=== PATIENT | female | born 1990 | race Caucasian/White ===

== ENCOUNTER → 2016-10-17 | Outpatient (CLI) | payer OTHER ==
--- NOTE | 2016-10-17 14:56 | XR ---
EXAMINATION TYPE: XR lumbar spine 2 or 3V DATE OF EXAM: 10/17/2016 2:49 PM CLINICAL HISTORY: Low back pain after lifting injury. TECHNIQUE: Frontal and lateral images of the lumbar spine are obtained. COMPARISON: None FINDINGS: There are 5 lumbar type vertebral bodies identified. The lumbar spine shows satisfactory alignment without evidence of acute fracture or dislocation. Vertebral body heights and disk space he ights are within normal limits. Cholecystectomy clips are seen in overlying soft tissue. IMPRESSION: No acute fracture or dislocation is seen in the lumbar spine.
== END | disposition home or self-care (01) ==
LOC: RADXRMAIN 14:33
PROVIDERS: ATTEND Emergency Medicine
DX: S33.5XXA Sprain of ligaments of lumbar spine, initial encounter (principal)
CPT/HCPCS: 72100

== ENCOUNTER 2018-03-21 00:04 | Emergency (ER) | payer OTHER ==
[2018-03-21] MEDS ORDERED: KETOROLAC 30 MG/ML 1 ML VIAL IVP STA (00:34)
--- NOTE | 2018-03-21 00:48 | ED ---
Chest Pain HPI - General Chief Complaint: Chest Pain Stated Complaint: Chest and back pain Time Seen by Provider: 03/21/18 00:26 Source: patient Mode of arrival: ambulatory Limitations: no limitations - History of Present Illness Initial Comments: 27-year-old female patient presents to the emergency department today for evaluation of chest and upper back pain. Patient states that the pain in her chest is a sharp stabbing pain, states that it radiates across her entire chest. States that it also radiates across her entire upper back. States that his been going on for the last 2 days. States that she did just start a new job however she states she just sits in a chair and feels relaxed there. She states that the pain does increase with movement of her upper extremities and deep breathing. She denies any shortness of breath with this. Denies any cough or congestion. Denies any fevers or chills. She states that she did have the next one on control implant removed from her arm approximately one month ago. She denies any recent travel. Denies any calf or leg pain. States she has taken ibuprofen for pain control however it is not helping. Patient denies any recent rash, sweats, abdominal pain, nausea, vomiting, diarrhea, constipation, back pain, numbness, tingling, dizziness, weakness, hematuria, dysuria, urinary urgency, urinary frequency, headache, visual changes , or any other complaints. - Related Data Previous Rx's Medication Instructions Recorded Cyclobenzaprine [Flexeril] 10 mg PO TID PRN #15 tablet 12/25/15 Naproxen [Naprosyn] 500 mg PO Q12HR PRN #20 tab 12/25/15 traMADol HCl [Ultram] 50 mg PO Q4H PRN #15 tab 12/25/15 Ibuprofen [Motrin] 600 mg PO Q8HR PRN #30 tab 03/21/18 Allergies Allergy/AdvReac Type Severity Reaction Status Date / Time lactose AdvReac Diarrhea Verified 03/21/18 00:09 Review of Systems ROS Statement: Those systems with pertinent positive or pertinent negative responses have been documented in the HPI. ROS Other: All systems not noted in ROS Statement are negative. EKG Findings - EKG Comments: EKG Findings:: EKG obtained at 00 44 shows normal sinus rhythm with a ventricular rate is 77, MN interval 142, QR orthodox 78, QT 370, QTC 418. No evidence of ST elevation or depression. Past Medical History Past Medical History: No Reported History History of Any Multi-Drug Resistant Organisms: None Reported Past Surgical History: Cholecystectomy Past Psychological History: No Psychological Hx Reported Smoking Status: Current every day smoker Past Alcohol Use History: Occasional Past Drug Use History: None Reported General Exam Limitations: no limitations General appearance: alert, in no apparent distress, other (This is a well- developed, well-nourished adult female patient in no acute distress. Vital signs upon presentation are temperature 97.8F, pulse 99, respirations 16, blood pressure 160/100, pulse ox 100% on room air.) Eye exam: Present: normal appearance, PERRL, EOMI. Absent: scleral icterus, conjunctival injection, periorbital swelling ENT exam: Present: normal exam, normal oropharynx, mucous membranes moist Respiratory exam: Present: normal lung sounds bilaterally, chest wall tenderness (Pain is reproducible upon palpation). Absent: respiratory distress , wheezes, rales, rhonchi, stridor Cardiovascular Exam: Present: regular rate, normal rhythm, normal heart sounds. Absent: systolic murmur, diastolic murmur, rubs, gallop, clicks GI/Abdominal exam: Present: soft, normal bowel sounds. Absent: distended, tenderness, guarding, rebound, rigid Back exam: Present: normal inspection, other (Upper back tenderness, no spinal tenderness) Neurological exam: Present: alert, oriented X3, CN II-XII intact Psychiatric exam: Present: normal affect, normal mood Skin exam: Present: warm, dry, intact, normal color. Absent: rash Course Vital Signs 03/21/18 03/21/18 03/21/18 00:08 01:55 02:12 Temperature 97.8 F 97.9 F Pulse Rate 99 73 Respiratory 16 17 Rate Blood Pressure 160/100 135/76 O2 Sat by Pulse 100 99 Oximetry Chest Pain MDM - MDM 27 year-old female patient presented to the emergency department today for evaluation of generalized chest pain and upper back pain. Physical examination does reveal clear equal lung sounds. Normal heart sounds. The pain is reproducible upon palpation of the anterior chest and posterior chest mata. Patient did initially present with elevated blood pressure but this did normalize once her anxiety decreased. Chest x-ray showed no acute cardiopulmonary process. EKG showed normal sinus rhythm. I did discuss findings with the patient, did discuss that her symptoms could be related to costochondritis related to starting a new job. She is instructed take anti- inflammatory pain medication apply warm moist heat to the painful areas. She is instructed to follow-up with the primary care physician for recheck in 1-2 days. Return parameters discussed in detail. She verbalizes understanding and agrees with this plan. Radiology:Two-view x-ray of the chest is obtained. Heart and mediastinum are normal. Lungs are clear. Diaphragm is normal. Bony thorax is normal. Impression by Dr. Collins shows normal chest. Disposition Clinical Impression: Costochondritis Disposition: HOME SELF-CARE Condition: Good Instructions: Chest Pain (ED), Costochondritis (ED) Additional Instructions: Apply warm moist heat to the upper back and chest. Take anti-inflammatory pain medication every 6-8 hours as needed. Rest. Follow-up with your primary care physician for recheck in 1-2 days. Prescriptions: Ibuprofen [Motrin] 600 mg PO Q8HR PRN #30 tab PRN Reason: Pain Is patient prescribed a controlled substance at d/c from ED?: No Referrals: Pavan Gayle MD [Primary Care Provider] - 1-2 days Time of Disposition: 02:06
--- NOTE | 2018-03-21 01:39 | XR ---
EXAMINATION TYPE: XR chest 2V DATE OF EXAM: 03/21/2018 COMPARISON: NONE HISTORY: Chest pain TECHNIQUE: Frontal and lateral views of the chest are obtained. FINDINGS: Heart and mediastinum are normal. Lungs are clear. Diaphragm is normal. Bony thorax is nor mal. IMPRESSION: Normal chest
[2018-03-21 01:59] VITALS: BP 135/76; PULSE 73; RESP 17
[2018-03-21 02:13] VITALS: TEMP 97.9
== END 2018-03-21 02:12 | disposition home or self-care (01) ==
LOC: EC 00:04
DX: M94.0 Chondrocostal junction syndrome [Tietze] (principal); R03.0 Elevated blood-pressure reading, without diagnosis of hypertension; F17.200 Nicotine dependence, unspecified, uncomplicated; Z91.011 Allergy to milk products
CPT/HCPCS: 99285; 96374; 93005; 71046; J1885

== ENCOUNTER 2018-04-07 16:12 | Emergency (ER) | payer OTHER ==
[2018-04-07 16:31] VITALS: BP 159/86; PULSE 83; RESP 18; TEMP 98.9
--- NOTE | 2018-04-07 16:48 | ED ---
General Adult HPI - General Chief complaint: Dental/Oral Stated complaint: Tooth Pain Time Seen by Provider: 04/07/18 16:27 Source: patient, RN notes reviewed, old records reviewed Mode of arrival: ambulatory Limitations: no limitations - History of Present Illness Initial comments: 27-year-old female presenting with left lower tooth pain. Pain is been present for the past several days. Approximately one week ago she fractured this tooth. This is the only tooth that the patient has. She has had all other teeth extracted secondary to dental caries and poor dentition. Denies fever or chills. Denies ear pain. Denies swelling. Denies any purulent drainage. - Related Data Previous Rx's Medication Instructions Recorded Ibuprofen [Motrin] 600 mg PO Q8HR PRN #30 tab 03/21/18 Amoxicillin 500 mg PO Q12HR #14 cap 04/07/18 Ibuprofen [Motrin] 600 mg PO Q8HR PRN #24 tab 04/07/18 Allergies Allergy/AdvReac Type Severity Reaction Status Date / Time lactose AdvReac Diarrhea Verified 04/07/18 16:29 Review of Systems ROS Statement: Those systems with pertinent positive or pertinent negative responses have been documented in the HPI. ROS Other: All systems not noted in ROS Statement are negative. Past Medical History Past Medical History: No Reported History History of Any Multi-Drug Resistant Organisms: None Reported Past Surgical History: Cholecystectomy Past Psychological History: No Psychological Hx Reported Smoking Status: Current every day smoker Past Alcohol Use History: Occasional Past Drug Use History: None Reported General Exam Limitations: no limitations General appearance: alert, in no apparent distress Head exam: Present: atraumatic, normocephalic Eye exam: Present: normal appearance, PERRL ENT exam: Absent: normal exam (Patient has fractured left lower wisdom tooth with dental caries. No drainable abscess.) Neck exam: Present: normal inspection, tenderness Respiratory exam: Present: normal lung sounds bilaterally. Absent: respiratory distress, wheezes Cardiovascular Exam: Present: regular rate, normal rhythm Course Vital Signs 04/07/18 16:28 Temperature 98.9 F Pulse Rate 83 Respiratory 18 Rate Blood Pressure 159/86 O2 Sat by Pulse 100 Oximetry Medical Decision Making - Medical Decision Making Patient with fractured tooth and dental caries on the left lower mandible, no surrounding signs of infection. Patient will be started on amoxicillin, Motrin , and will follow-up with her dentist. Disposition Clinical Impression: Fracture of tooth, Dental caries Disposition: HOME SELF-CARE Condition: Good Instructions: Dental Caries (ED), Toothache (ED) Prescriptions: Amoxicillin 500 mg PO Q12HR #14 cap Ibuprofen [Motrin] 600 mg PO Q8HR PRN #24 tab PRN Reason: Pain Is patient prescribed a controlled substance at d/c from ED?: No Referrals: Pavan Gayle MD [Primary Care Provider] - 1-2 days Time of Disposition: 16:48
== END 2018-04-07 16:56 | disposition home or self-care (01) ==
LOC: EC 16:12
DX: K02.9 Dental caries, unspecified (principal); S02.5XXA Fracture of tooth (traumatic), initial encounter for closed fracture; K08.139 Complete loss of teeth due to caries, unspecified class; F17.200 Nicotine dependence, unspecified, uncomplicated; Z91.011 Allergy to milk products; X58.XXXA Exposure to other specified factors, initial encounter
CPT/HCPCS: 99283

== ENCOUNTER 2018-12-05 23:15 | Outpatient (CLI) | payer OTHER ==
[2018-12-05 23:58] VITALS: BP 137/85; PULSE 110; RESP 16; TEMP 96.8
--- NOTE | 2018-12-31 10:03 | P.MSEPDOC ---
Presenting Problems - Arrival Data Date of Arrival on Unit: 12/05/18 Time of Arrival on Unit: 23:15 Mode of Transport: Wheelchair - Complaint OB-Reason for Admission/Chief Complaint: Possible Onset of Labor Comment: Patient states she has been larissa since 1100 am States they have more recently gotten closer together and are approximately 5 minutes apart. Denies leaking of fluids or vaginal bleeding Medical History - Information : 4 Para: 3 Term: 3 : 0 Abortions: Spontaneous or Elective: 0 Number of Living Children: 3 - Gestational Age Gestational Age by LUIS EDUARDO (wks/days): 37 Weeks and 3 Days - History Complications: GBS+, Smoker Review of Systems - Review of Systems Constitutional: No problems Breast: No problems ENT: No problems Cardiovascular: No problems Respiratory: No problems Gastrointestinal: No problems Genitourinary: No problems Musculoskeletal: No problems Neurological: No problems Skin: No problems Vital Signs - Temperature Temperature: 96.8 F Temperature Source: Temporal Artery Scan - Pulse Pulse Oximetery Pulse Rate: 110 Pulse Assessment Method: Automatic Cuff - Respirations Respiratory Rate: 16 Oxygen Delivery Method: Room Air O2 Sat by Pulse Oximetry: 98 - Blood Pressure Sitting Blood Pressure: 137/85 Blood Pressure Mean: 102 Blood Pressure Source: Automatic Cuff Medical Screen Scoring (Pre) - Cervical Exam Dilation: 1-3 cm = 1 Effacement: More than 50% = 2 Membranes: Intact - Uterine Contractions Frequency: > 5 minutes apart = 1 Duration: N/A Intensity: N/A - Maternal Vital Signs Maternal Temperature: N/A Maternal Blood Pressure: N/A Signs of Preeclampsia: N/A Maternal Respirations: N/A - Total Score Total Score (Pre): 4 - Level of Risk Level of Risk: Low (0-5) Physician Notification (Pre) - Physician Notified Physician Notified Date: 12/06/18 Physician Notified Time: 00:47 Physician/Practitioner Notifed:: Dr. Zhao Huber Order Received: Yes - Notification Comment Comment: Orders given to discharge patient home with instructions, patient to keep reguarly scheduled appoinment with Dr. Troy for this am. Disposition - Disposition OB Disposition: Discharge to home Discharge Date: 12/06/18 Discharge Time: 00:50 I agree with the RN Medical Screening Exam: Yes Risk & Benefit of care provided described in d/c instruction: Yes Diagnosis: FALSE LABOR BEFORE 37 COMPLETED WEEKS OF GEST, THIRD TRI
== END 2018-12-06 00:50 | disposition home or self-care (01) ==
LOC: FBPOP 23:15
PROVIDERS: ATTEND Obstetrics & Gynecology
DX: O47.03 False labor before 37 completed weeks of gestation, third trimester (principal); O99.333 Smoking (tobacco) complicating pregnancy, third trimester; F17.200 Nicotine dependence, unspecified, uncomplicated; Z3A.37 37 weeks gestation of pregnancy
CPT/HCPCS: 59025; G0463; 99213

== ENCOUNTER 2018-12-17 06:00 | Inpatient (IN) | payer OTHER ==
[2018-12-17] MEDS ORDERED: OXYTOCIN 10 UNIT/ML 1 ML VIAL IM PRN (06:27)
[2018-12-17] MEDS ORDERED: AMPICILLIN 2,000 MG in SODIUM CHLORIDE 0.9% 100 ML IVPB STA (06:27)
[2018-12-17] MEDS ORDERED: LIDOCAINE 0.5% (PF) 5 MG/ML (50 ML SDV) SQ PRN (06:27)
[2018-12-17] MEDS ORDERED: CARBOPROST TROMETHAMINE 250 MCG/ML 1 ML AMP IM PRN (06:27)
[2018-12-17] MEDS ORDERED: TERBUTALINE 1 MG/ML VIAL SQ PRN (06:27)
[2018-12-17] MEDS ORDERED: METHYLERGONOVINE 0.2 MG/ML 1 ML AMP IM PRN (06:27)
[2018-12-17] MEDS ORDERED: OXYTOCIN 30 UNITS/500 ML NS 30 UNIT in SALINE 1 500ML.BAG IV SCH (06:30)
[2018-12-17] MEDS ORDERED: LACTATED RINGERS 1,000 ML IV SCH (06:30)
[2018-12-17] MEDS: LACTATED RINGERS 1,000 ML IV SCH ×2 (06:42→09:51)
[2018-12-17 06:47] VITALS: BMI 43.4
[2018-12-17 06:55] LABS: Basophils # (A) 0.1 k/uL (0-0.2); Basophils % (A) 0 %; Eosinophils # (A) 0.3 k/uL (0-0.7); Eosinophils % (A) 2 %; HCT 33.1 % (34.0-46.0); HGB 10.8 gm/dL (11.4-16.0); Lymphocytes # (A) 2.6 k/uL (1.0-4.8); Lymphocytes % (A) 20 %; MCH 26.1 pg (25.0-35.0); MCHC 32.7 g/dL (31.0-37.0); MCV 79.7 fL (80.0-100.0); Mean Platelet Volume 8.1; Monocytes # (A) 0.7 k/uL (0-1.0); Monocytes % (A) 5 %; Neutrophils # (A) 9.4 k/uL (1.3-7.7); Neutrophils % (A) 71 %; Platelet Count 264 k/uL (150-450); RBC 4.15 m/uL (3.80-5.40); RDW 14.6 % (11.5-15.5); WBC 13.1 k/uL (3.8-10.6)
[2018-12-17] MEDS ORDERED: ROPIVACAINE 5MG/ML 20ML VIAL ONE (09:27)
[2018-12-17] MEDS ORDERED: SODIUM CHLORIDE 0.9% 100 ML BAG ONE (09:27)
[2018-12-17] MEDS ORDERED: fentaNYL (PF) 50 MCG/ML 5 ML AMP ONE (09:27)
[2018-12-17] MEDS: AMPICILLIN 1,000 MG in SODIUM CHLORIDE 0.9% 50 ML IVPB SCH ×2 (10:57→15:47)
[2018-12-17] MEDS ORDERED: diphenhydrAMINE 50 MG CAP PO PRN (15:39)
[2018-12-17] MEDS ORDERED: LANOLIN CREAM 5 GM TUBE TOPICAL PRN (15:39)
[2018-12-17] MEDS ORDERED: ZOLPIDEM 5 MG TAB PO PRN (15:39)
[2018-12-17] MEDS ORDERED: ACETAMINOPHEN TAB 325 MG TAB PO PRN (15:39)
[2018-12-17] MEDS ORDERED: diphenhydrAMINE 25 MG CAP PO PRN (15:39)
[2018-12-17] MEDS ORDERED: MEASLES-MUMPS-RUBELLA VACC/PF 12,500 UNIT/0.5 ML VIAL SQ ONE (15:39)
[2018-12-17] MEDS ORDERED: SIMETHICONE 80 MG CHEWABLE PO PRN (15:39)
[2018-12-17] MEDS ORDERED: WITCH HAZEL 1 EACH MED..PAD TOPICAL PRN (15:39)
[2018-12-17] MEDS ORDERED: BENZOCAINE/MENTHOL SPRAY 1 GM/SPRAY AEROSOL TOPICAL PRN (15:39)
[2018-12-17] MEDS ORDERED: HYDROCORTISONE 2.5% RECTAL CREAM 30 GM TUBE RECTAL PRN (15:39)
[2018-12-17] MEDS ORDERED: OXYTOCIN 20 UNITS/1000 ML NS 1,000 ML IV SCH (15:45)
[2018-12-17] MEDS: IBUPROFEN 600 MG TAB PO PRN ×2 (15:58→23:31)
--- NOTE | 2018-12-17 16:47 | P.HPOB ---
History of Present Illness H&P Date: 12/17/18 Chief Complaint: Intrauterine at term: Induction of labor Stacey is a 28 at 39 weeks gestation who arrives for induction of labor. Her course was significant for depression symptoms which she had previously, but no other significant problems were encountered. Pertinent labs O+ blood type, Rh antibody was negative, rubella was nonimmune, hepatitis B surface antigen was negative and group B strep was positive. On physical exam vital signs are stable and afebrile. Heart regular, lungs clear, extremities are without pain. Abdomen is soft and nontender and positive bowel sounds are noted. Gravid uterus noted. There is a category 1 tracing. She plans she is noted epidural for analgesia. Past Medical History Past Medical History: No Reported History History of Any Multi-Drug Resistant Organisms: None Reported Past Surgical History: Cholecystectomy Past Anesthesia/Blood Transfusion Reactions: No Reported Reaction Past Psychological History: ADD/ADHD, Anxiety, Depression Smoking Status: Current every day smoker Past Alcohol Use History: None Reported Additional Past Alcohol Use History / Comment(s): Half pack/ day Past Drug Use History: None Reported - Past Family History Father Family Medical History: Hypertension Medications and Allergies Home Medications Medication Instructions Recorded Confirmed Type No Known Home Medications 12/17/18 12/17/18 History Allergies Allergy/AdvReac Type Severity Reaction Status Date / Time lactose AdvReac Diarrhea Verified 12/17/18 06:27 Exam Osteopathic Statement: *. No significant issues noted on an osteopathic structural exam other than those noted in the History and Physical/Consult. Vital Signs Temp Pulse Resp BP 12/17/18 16:30 97.6 F 106 H 18 126/67 12/17/18 16:15 97.3 F L 94 18 124/66 12/17/18 16:00 96.4 F L 103 H 18 123/78 12/17/18 15:45 80 119/66 12/17/18 15:30 96.6 F L 99 18 124/74 12/17/18 06:44 96.5 F L 116 H 16 138/87 Intake and Output 12/17/18 12/17/18 12/17/18 06:59 14:59 22:59 Other: Weight 104.326 kg Results Result Diagrams: 12/17/18 06:38 Abnormal Lab Results - Last 24 Hours (Table) 03/18/19 Range/Units 06:38 WBC 13.1 H (3.8-10.6) k/uL Hgb 10.8 L (11.4-16.0) gm/dL Hct 33.1 L (34.0-46.0) % MCV 79.7 L (80.0-100.0) fL Neutrophils # 9.4 H (1.3-7.7) k/uL
--- NOTE | 2018-12-17 16:48 | P.PROBDLV ---
Vaginal Delivery Note - . Vaginal Delivery Note: Patient progressed complete and pushed with spontaneous vaginal delivery of a viable male over an intact perineum. Falling deliver the head a nuchal cord 1 was noted and the baby was delivered through the nuchal cord. Anterior posterior shoulders were then easily delivered and baby was placed on mother's abdomen where the umbilical cord was allowed to pulsate for 30 seconds prior to clamping and cutting. Nursery personnel was then present to assume care and mouth nares were bulb suctioned again. Umbilical blood was then collected for O+ blood type. Placenta was then delivered intact Pitocin was added to the IV. scores were 8 and 9 at one and 5 minutes respectively and the weight was 5 lbs. 9 oz. Both mother and baby are stable following delivery.
[2018-12-17] MEDS: SENNOSIDES-DOCUSATE SODIUM 1 EACH TAB PO SCH (20:12)
[2018-12-18 06:59] LABS: Basophils # (A) 0.1 k/uL (0-0.2); Basophils % (A) 0 %; Eosinophils # (A) 0.2 k/uL (0-0.7); Eosinophils % (A) 2 %; HCT 30.4 % (34.0-46.0); HGB 9.9 gm/dL (11.4-16.0); Lymphocytes # (A) 2.6 k/uL (1.0-4.8); Lymphocytes % (A) 18 %; MCH 26.2 pg (25.0-35.0); MCHC 32.6 g/dL (31.0-37.0); MCV 80.4 fL (80.0-100.0); Mean Platelet Volume 7.7; Monocytes # (A) 0.8 k/uL (0-1.0); Monocytes % (A) 6 %; Neutrophils # (A) 10.3 k/uL (1.3-7.7); Neutrophils % (A) 73 %; Platelet Count 261 k/uL (150-450); RBC 3.78 m/uL (3.80-5.40); RDW 14.5 % (11.5-15.5); WBC 14.1 k/uL (3.8-10.6)
[2018-12-18] MEDS: IBUPROFEN 600 MG TAB PO PRN ×2 (07:44→13:46)
[2018-12-18] MEDS: SENNOSIDES-DOCUSATE SODIUM 1 EACH TAB PO SCH (07:45)
--- NOTE | 2018-12-18 10:09 | P.DS ---
Providers Date of admission: 12/17/18 06:18 Expected date of discharge: 12/18/18 Attending physician: Neo Troy Primary care physician: Stated None Hospital Course: Stacey is doing very well day 1. She is involuting, voiding and she is tolerating her diet. She voices no complaints. Vital signs are stable and afebrile. Heart regular, lungs clear, extremities are without pain. Abdomen soft nontender. Assessment day 1. Plan discharged home follow up with me in 6 weeks. Prescription for Motrin was 40 to her pharmacy. She is aware to have no heavy lifting, limit stairs and driving and pelvic rest. Should she have any high temperatures, heavy bleeding, or severe pain she will call my office. All the questions were answered for her prior to her discharge Patient Condition at Discharge: Good Plan - Discharge Summary New Discharge Prescriptions: New Docusate [Colace] 100 mg PO DAILY #10 capsule Ibuprofen [Motrin] 600 mg PO Q6HR PRN #30 tab PRN Reason: Pain Discharge Medication List Docusate [Colace] 100 mg PO DAILY #10 capsule 12/18/18 [Rx] Ibuprofen [Motrin] 600 mg PO Q6HR PRN #30 tab 12/18/18 [Rx] Follow up Appointment(s)/Referral(s): Neo Troy DO [Doctor of Osteopathic Medicine] - 6 Weeks Patient Instructions/Handouts: Vaginal Delivery (DC) Activity/Diet/Wound Care/Special Instructions: No heavy lifting, limit stairs and driving, and pelvic rest. If any high temperatures, heavy bleeding, or severe pain call my office Discharge Disposition: HOME SELF-CARE
[2018-12-18 16:28] VITALS: BP 147/60; PULSE 98; RESP 15; TEMP 97.6
== END 2018-12-18 16:00 | disposition home or self-care (01) | DRG 807 ==
LOC: 4FBP 06:18
PROVIDERS: ADMIT Obstetrics & Gynecology; ATTEND Obstetrics & Gynecology
PROC: 10E0XZZ Delivery of Products of Conception, External Approach (ICD-10-PCS; principal; 2018-12-17)
PROC: 3E033VJ Introduction of Other Hormone into Peripheral Vein, Percutaneous Approach (ICD-10-PCS; 2018-12-17)
PROC: 10907ZC Drainage of Amniotic Fluid, Therapeutic from Products of Conception, Via Natural or Artificial Opening (ICD-10-PCS; 2018-12-17)
PROC: 00HU33Z Insertion of Infusion Device into Spinal Canal, Percutaneous Approach (ICD-10-PCS; 2018-12-17)
PROC: 3E0R3BZ Introduction of Anesthetic Agent into Spinal Canal, Percutaneous Approach (ICD-10-PCS; 2018-12-17)
PROC: 3E0134Z Introduction of Serum, Toxoid and Vaccine into Subcutaneous Tissue, Percutaneous Approach (ICD-10-PCS; 2018-12-17)
DX: O69.81X0 Labor and delivery complicated by cord around neck, without compression, not applicable or unspecified (principal); Z37.0 Single live birth; Z23 Encounter for immunization; O99.824 Streptococcus B carrier state complicating childbirth; O99.334 Smoking (tobacco) complicating childbirth; F17.210 Nicotine dependence, cigarettes, uncomplicated; O99.344 Other mental disorders complicating childbirth; F90.9 Attention-deficit hyperactivity disorder, unspecified type; F32.9 Major depressive disorder, single episode, unspecified; F41.9 Anxiety disorder, unspecified; Z3A.39 39 weeks gestation of pregnancy; Z91.011 Allergy to milk products; Z90.49 Acquired absence of other specified parts of digestive tract; Z82.49 Family history of ischemic heart disease and other diseases of the circulatory system
CPT/HCPCS: 85025; 86850; 86900; 86901; 90707

== ENCOUNTER 2018-12-18 23:28 | Emergency (ER) | payer OTHER ==
[2018-12-18 23:34] VITALS: BP 139/89; PULSE 91; RESP 18; TEMP 97.9
--- NOTE | 2018-12-19 00:08 | ED ---
Abdominal Pain HPI - General Source: patient Mode of arrival: ambulatory Limitations: no limitations <Tatiana Flores - Last Filed: 12/19/18 03:53> <Mouna Miller - Last Filed: 12/19/18 03:59> - General Chief Complaint: Abdominal Pain Stated Complaint: Abd Pain Time Seen by Provider: 12/18/18 23:48 - History of Present Illness Initial Comments: 28-year-old female patient presents to the emergency department today for evaluation of lower abdominal pain and pressure. Patient is one day after a uncomplicated vaginal delivery of a healthy baby boy. Patient states she was discharged around 1630 afternoon. States that since discharge she has had steadily increasing pain and pressure to the suprapubic region. Patient states that she has had a small amount of bright red vaginal bleeding. She is , states that she has never had symptoms similar to this after delivery in the past. States she usually has more bleeding. She denies any fevers or chills. Denies any difficulty with urination or constipation. Denies any nausea or vomiting. Patient denies any recent rash, shortness breath, chest pain, numbness, tingling, dizziness, weakness, hematuria, dysuria, urinary urgency, urinary frequency, headache, visual changes, or any other complaints. (Tatiana Flores) - Related Data Previous Rx's Medication Instructions Recorded Docusate [Colace] 100 mg PO DAILY #10 capsule 12/18/18 Ibuprofen [Motrin] 600 mg PO Q6HR PRN #30 tab 12/18/18 Allergies Allergy/AdvReac Type Severity Reaction Status Date / Time lactose AdvReac Diarrhea Verified 12/18/18 23:34 Review of Systems ROS Other: All systems not noted in ROS Statement are negative. <Tatiana Flores - Last Filed: 12/19/18 03:53> ROS Other: All systems not noted in ROS Statement are negative. <Mouna Miller - Last Filed: 12/19/18 03:59> ROS Statement: Those systems with pertinent positive or pertinent negative responses have been documented in the HPI. Past Medical History Past Medical History: No Reported History History of Any Multi-Drug Resistant Organisms: None Reported Past Surgical History: Cholecystectomy Past Anesthesia/Blood Transfusion Reactions: No Reported Reaction Past Psychological History: ADD/ADHD, Anxiety, Depression Smoking Status: Current every day smoker Past Alcohol Use History: None Reported Past Drug Use History: None Reported - Past Family History Father Family Medical History: Hypertension <Tatiana Flores - Last Filed: 12/19/18 03:53> General Exam Limitations: no limitations General appearance: alert, in no apparent distress, other (Physical well- developed, well-nourished adult female patient in no acute distress. Vital signs upon presentation are temperature 97.9F, pulse 91, respirations 18, blood pressure 139/89, pulse ox 100% on room air.) Eye exam: Present: normal appearance, PERRL, EOMI. Absent: scleral icterus, conjunctival injection, periorbital swelling ENT exam: Present: normal exam, normal oropharynx, mucous membranes moist Respiratory exam: Present: normal lung sounds bilaterally. Absent: respiratory distress, wheezes, rales, rhonchi, stridor Cardiovascular Exam: Present: regular rate, normal rhythm, normal heart sounds. Absent: systolic murmur, diastolic murmur, rubs, gallop, clicks GI/Abdominal exam: Present: soft, tenderness (Suprapubic tenderness), normal bowel sounds. Absent: distended, guarding, rebound, rigid External exam: Present: normal external exam Speculum exam: Present: vaginal bleeding (Mild bleeding from dilated cervical os) Neurological exam: Present: alert, oriented X3, CN II-XII intact Psychiatric exam: Present: normal affect, normal mood Skin exam: Present: warm, dry, intact, normal color. Absent: rash <Tatiana Flores M - Last Filed: 12/19/18 03:53> Course Vital Signs 12/18/18 23:31 Temperature 97.9 F Pulse Rate 91 Respiratory 18 Rate Blood Pressure 139/89 O2 Sat by Pulse 100 Oximetry Medical Decision Making <Tatiana Flores M - Last Filed: 12/19/18 03:53> <Mouna Miller P - Last Filed: 12/19/18 03:59> - Medical Decision Making 28-year-old female patient who is one day presents to the emergency department today for evaluation of increasing abdominal pain and pressure. Physical examination does reveal some tenderness to the suprapubic region. Pelvic examination did reveal mild vaginal bleeding from a dilated cervical os. No evidence of clots in the vaginal vault or in the cervical os. My attending Dr. Miller was in to see and evaluate the patient. She did discuss the case with the on-call PNEUMATIC HOIST OPERATOR Dr. Churchill. Exam findings and history are not concerning at this time. Vital signs are stable. Patient appears comfortable. Dr. Churchill recommends discharge to follow-up outpatient. We did discuss return parameters in detail. Patient verbalizes understanding and agrees with this plan. (Tatiana Flores) I personally saw and evaluated this patient. Patient is one day and is experiencing pelvic pressure feeling as though she needs to push she reports she's had this previously in the period when she was passing large blood clots but has not passed any large clots today. Patient is hemodynamically stable well appearing. I did discuss the patient care with gynecology on-call doctor Zhao who states that if the patient's hemodynamically stable with no significant discomfort there is no indication for imaging patient can be discharged home with outpatient follow-up. (Whitney Miller) - Lab Data Lab Results 12/19/18 Range/Units 01:15 Urine Color Colorless Urine Appearance Clear (Clear) Urine pH 6.5 (5.0-8.0) Ur Specific [place] 1.003 (1.001-1.035) Urine Protein Negative (Negative) Urine Glucose (UA) Negative (Negative) Urine Ketones Negative (Negative) Urine Blood Moderate H (Negative) Urine Nitrite Negative (Negative) Urine Bilirubin Negative (Negative) Urine Urobilinogen <2.0 (<2.0) mg/dL Ur Leukocyte Esterase Trace H (Negative) Urine RBC 4 (0-5) /hpf Urine WBC 6 H (0-5) /hpf Urine WBC Clumps Rare H (None) /hpf Ur Squamous Epith Cells 3 (0-4) /hpf Urine Bacteria Rare H (None) /hpf Urine Mucus Rare H (None) /hpf Disposition Is patient prescribed a controlled substance at d/c from ED?: No Time of Disposition: 01:07 <Tatiana Flores - Last Filed: 12/19/18 03:53> <Mouna Miller - Last Filed: 12/19/18 03:59> Clinical Impression: Pelvic pain Disposition: HOME SELF-CARE Condition: Good Instructions (If sedation given, give patient instructions): Pelvic Pain in Women (ED) Additional Instructions: Follow-up with your PNEUMATIC HOIST OPERATOR for recheck as soon as possible. Return to the emergency department immediately for any new, worsening, or concerning symptoms. Referrals: Melchor Santamaria MD [Primary Care Provider] - 1-2 days
[2018-12-19] MEDS ORDERED: ACETAMINOPHEN TAB 500 MG TAB PO STA (00:15)
[2018-12-19 01:55] LABS: Appearance,Urine Clear (Clear); Bacteria,Urine Rare /hpf; Bilirubin,Urine Negative (Negative); Blood,Urine Moderate (Negative); Color,Urine Colorless; Glucose,Urine (UA) Negative (Negative); Ketones,Urine Negative (Negative); Leukocyte Esterase,Urine Trace (Negative); Mucus,Urine Rare /hpf; Nitrite,Urine Negative (Negative); PH, Urine 6.5 (5.0-8.0); Protein,Urine Negative (Negative); RBC,Urine 4 /hpf (0-5); Specific Gravity,Urine 1.003 (1.001-1.035); Squamous Epithelial Cell,Urine 3 /hpf (0-4); Urobilinogen,Urine <2.0 mg/dL (<2.0); WBC,Urine 6 /hpf (0-5)
== END 2018-12-19 01:21 | disposition home or self-care (01) ==
LOC: EC 23:28
DX: O90.89 Other complications of the puerperium, not elsewhere classified (principal); R10.2 Pelvic and perineal pain; N93.9 Abnormal uterine and vaginal bleeding, unspecified; O99.335 Smoking (tobacco) complicating the puerperium; F17.200 Nicotine dependence, unspecified, uncomplicated; Z91.018 Allergy to other foods; Z90.49 Acquired absence of other specified parts of digestive tract
CPT/HCPCS: 81001; 99284

== ENCOUNTER 2019-02-04 06:34 | Day surgery (SDC) | payer OTHER ==
[2019-01-30 15:37] VITALS: BMI 40.2
[~2019-02-04 06:34] MED LIST: DEXAMETHASONE SOD PHOSPHATE 10 MG/ML 1 ML VIAL IV ONE; HYDROmorphone 0.5 MG/0.5 ML SYRINGE IVP PRN; LACTATED RINGERS 1,000 ML IV SCH; LIDOCAINE 1% 20 ML VIAL (10MG/ML) FOR IV START INTRADERMA PRN; MIDAZOLAM (PF) 2 MG/2 ML VIAL IV PRN; ONDANSETRON 4 MG/2 ML VIAL IVP ONE; Pre Op ABX Message 1 EACH MISC MISCELLANE ONE; fentaNYL (PF) 50 MCG/ML 2 ML AMP IV PRN
[2019-02-04] MEDS ORDERED: LIDOCAINE 1% INJ 10MG/ML (20 ML MDV) ONE (07:25)
[2019-02-04] MEDS ORDERED: ROCURONIUM BROMIDE 10 MG/ML 10 ML VIAL IV ONE (07:25)
[2019-02-04] MEDS ORDERED: fentaNYL (PF) 50 MCG/ML 2 ML AMP ONE (07:25)
[2019-02-04] MEDS ORDERED: MIDAZOLAM 2 MG/2 ML VIAL ONE (07:25)
[2019-02-04] MEDS ORDERED: NEOSTIGMINE 1 MG/ML 10 ML VIAL ONE (07:25)
[2019-02-04] MEDS ORDERED: GLYCOPYRROLATE 0.2 MG/ML 2 ML VIAL ONE (07:25)
[2019-02-04] MEDS ORDERED: SUCCINYLCHOLINE CHLORIDE 100 MG/5 ML SYR IV ONE (07:25)
[2019-02-04] MEDS ORDERED: PROPOFOL 10 MG/ML 20 ML VIAL IV ONE (07:25)
[2019-02-04] MEDS ORDERED: BUPIVACAINE (PF) 0.5% 30 ML VIAL SQ ONE ×3 (07:31→07:52)
[2019-02-04 08:20] VITALS: TEMP 98.1
[2019-02-04 08:24] VITALS: RESP 16
[2019-02-04] MEDS ORDERED: KETOROLAC 30 MG/ML 1 ML VIAL IVP ONE (08:24)
[2019-02-04] MEDS ORDERED: HYDROmorphone 1 MG/ML 1 ML SYRINGE IVP ONE ×2 (08:26→08:41)
[2019-02-04] MEDS ORDERED: LACTATED RINGERS 1,000 ML IV ONE (08:39)
[2019-02-04] MEDS ORDERED: HYDROcodone/APAP 5-325MG 1 EACH TAB PO ONE (09:04)
[2019-02-04 09:15] VITALS: PULSE 61
[2019-02-04 09:37] VITALS: BP 118/81
--- NOTE | 2019-02-11 08:27 | P.OP ---
Date of Procedure: 02/11/19 Preoperative Diagnosis: Family planning Postoperative Diagnosis: Same Procedure(s) Performed: Laparoscopic tubal occlusion with Filshie clips Anesthesia: TIM Surgeon: Neo Troy Estimated Blood Loss (ml): 3 Pathology: none sent Condition: stable Disposition: same day Operative Findings: Normal female anatomy Description of Procedure: Patient was taken to the operating suite where a general anesthetic was found be adequate. She was prepped and draped in normal sterile fashion and placed in dorsal lithotomy position. Initially a speculum was inserted into the vagina and anterior lip of cervix was identified and grasped with an Allis clamp cervix was then cannulated with a uterine manipulator and once this was placed these incidents removed and a red rubber cath was used to drain the bladder urine. Once this was accomplished gloves were changed and attention was turned to abdominal portion procedure where 3 mL of quarter percent Marcaine was injected periumbilically. Through this injected anesthetic a 5 mm skin incision was made and through this incision under direct visualization with an optical trocar and sleeve the camera was inserted. Once peritoneal placement was assured gas was allowed to fully insufflate the abdomen and patient's placement steep Trendelenburg position. Second 8 mm skin incision was then made 3 cm above the pubic symphysis in the midline and an 8 mm port and sleeve were inserted through this opening. This was also done under direct visualization. Observations pelvis were noted. Uterus was elevated and tipped to the left side right fallopian tube was then clamped with a Filshie clip 2 cm from uterine cornu followed by clamping of the left fallopian tube in similar fashion. With no bleeding noted from the mesosalpinx instruments were removed. Sponge, lap, needle counts all correct 2. Gas was allowed to expel from the abdomen 5 deep breaths were provided during this process. 4-0 Vicryl was then used to close incision subcuticularly. Another 6 mL of quarter percent Marcaine was injected around the incisions. Instruments were then removed from the vagina. Patient tolerated surgery very well, patient was taken to the recovery room in stable and satisfactory condition. Plan - Discharge Summary Discharge Rx Participant: Yes New Discharge Prescriptions: New Ibuprofen [Motrin] 600 mg PO Q6HR PRN #30 tab PRN Reason: Pain HYDROcodone/APAP 5-325MG [[place] 5-325] 1 tab PO Q4HR PRN #20 tab PRN Reason: Pain Discharge Medication List HYDROcodone/APAP 5-325MG [[place] 5-325] 1 tab PO Q4HR PRN #20 tab 02/04/19 [Rx] Ibuprofen [Motrin] 600 mg PO Q6HR PRN #30 tab 02/04/19 [Rx] Follow up Appointment(s)/Referral(s): Neo Troy DO [Doctor of Osteopathic Medicine] - 2 Weeks Patient Instructions/Handouts: *Surgery [facility] - (Anesthesia) Discharge Instructions Outpatient Surgery, Tubal Ligation (DC) Activity/Diet/Wound Care/Special Instructions: No heavy lifting, limit stairs and driving, and pelvic rest. If any high temperatures, heavy bleeding, or severe pain call my office Discharge Disposition: HOME SELF-CARE
== END 2019-02-04 10:00 | disposition home or self-care (01) ==
LOC: OR 06:34
PROVIDERS: ATTEND Obstetrics & Gynecology
DX: Z30.2 Encounter for sterilization (principal); F17.210 Nicotine dependence, cigarettes, uncomplicated; Z90.49 Acquired absence of other specified parts of digestive tract; Z88.8 Allergy status to other drugs, medicaments and biological substances; E66.01 Morbid (severe) obesity due to excess calories; Z68.41 Body mass index [BMI] 40.0-44.9, adult
CPT/HCPCS: 81025; 58671; J2250; J1100; J2710; J2405; J2001; J3010; J1885; J1170; J0330; J2704

== ENCOUNTER → 2019-04-19 | Outpatient (CLI) | payer OTHER ==
--- NOTE | 2019-04-19 18:35 | XR ---
EXAMINATION TYPE: XR lumbar spine 2 or 3V DATE OF EXAM: 04/19/2019 COMPARISON: 10/17/2016 HISTORY: Back pain TECHNIQUE: 3 views FINDINGS: Lumbar vertebra have normal spacing and alignment. Posterior elements are intact. Sacroilia c joints appear normal. There is no evidence of a fracture. IMPRESSION: Normal lumbar spine. No change.
== END | disposition home or self-care (01) ==
LOC: RADXRMAIN 18:11
PROVIDERS: ATTEND Emergency Medicine
DX: S39.012D Strain of muscle, fascia and tendon of lower back, subsequent encounter (principal)
CPT/HCPCS: 72100

== ENCOUNTER 2019-07-10 21:18 | Emergency (ER) | payer OTHER ==
[2019-07-10 21:25] VITALS: BP 150/87; PULSE 82; RESP 18; TEMP 97.6
--- NOTE | 2019-07-10 22:00 | XR ---
EXAMINATION TYPE: XR foot limited RT DATE OF EXAM: 07/10/2019 COMPARISON: NONE HISTORY: Laceration. Crush injury. Pain. TECHNIQUE: 2 views FINDINGS: Metatarsals appear intact. I see no fracture nor dislocation. Joint spaces are normal. Ther e are no erosions. Big toe appears intact. IMPRESSION: Negative right foot exam.
--- NOTE | 2019-07-10 22:22 | ED ---
Lower Extremity Injury HPI - General Chief Complaint: Extremity Injury, Lower Stated Complaint: R Toe Injury Time Seen by Provider: 07/10/19 21:29 Source: patient Mode of arrival: ambulatory Limitations: no limitations - History of Present Illness Initial Comments: Patient is a 28-year-old female presenting to the emergency Department with complaints of pain in her right big toe x 2 days. Patient states she dropped a PlayStation 3 onto her right big toe. Patient states she's been having pain and swelling from the area as well as some yellow drainage. Patient does have a small cut on the medial aspect of the right big toe. Patient states she is able to ambulate. Patient denies any other complaints at this time. Tetanus vaccine is up-to-date. Upon arrival to ER vital signs are stable. - Related Data Previous Rx's Medication Instructions Recorded HYDROcodone/APAP 5-325MG [[place] 1 tab PO Q4HR PRN #20 tab 02/04/19 5-325] Ibuprofen [Motrin] 600 mg PO Q6HR PRN #30 tab 02/04/19 Cephalexin [Keflex] 500 mg PO Q6HR 5 Days #20 cap 07/10/19 Allergies Allergy/AdvReac Type Severity Reaction Status Date / Time lactose AdvReac Diarrhea Verified 07/10/19 21:25 Review of Systems ROS Statement: Those systems with pertinent positive or pertinent negative responses have been documented in the HPI. ROS Other: All systems not noted in ROS Statement are negative. Past Medical History Past Medical History: No Reported History History of Any Multi-Drug Resistant Organisms: None Reported Past Surgical History: Cholecystectomy Past Anesthesia/Blood Transfusion Reactions: No Reported Reaction Past Psychological History: ADD/ADHD, Depression Smoking Status: Current every day smoker Past Alcohol Use History: None Reported Past Drug Use History: None Reported - Past Family History Father Family Medical History: Hypertension General Exam - General Exam Comments Initial Comments: GENERAL: Well-appearing, well-nourished and in no acute distress. HEAD: Atraumatic, normocephalic. EYES: Pupils equal round and reactive to light, extraocular movements intact, sclera anicteric, conjunctiva are normal. NECK: Normal range of motion, supple without lymphadenopathy or JVD. LUNGS: Breath sounds clear to auscultation bilaterally and equal. No wheezes rales or rhonchi. HEART: Regular rate and rhythm without murmurs, rubs or gallops. EXTREMITIES: There is swelling and bruising of the right big toe. Pain with toe flexion and extension. Range of motion is normal. Neurovascular intact. There is a small superficial 0.5cm laceration to the medial aspect of the toe. It is already healing and crusted over. There is some active yellow/redness drainage. NEUROLOGICAL: Cranial nerves II through XII grossly intact. Normal speech, normal gait. PSYCH: Normal mood, normal affect. SKIN: Warm, Dry, normal turgor, no rashes.. Limitations: no limitations Course Vital Signs 07/10/19 21:21 Temperature 97.6 F Pulse Rate 82 Respiratory 18 Rate Blood Pressure 150/87 O2 Sat by Pulse 98 Oximetry Medical Decision Making - Medical Decision Making Patient is a 28-year-old female presenting with right big toe pain after dropping a PlayStation 3 on it 2 days ago. X-rays reveal no acute fractures dislocations. Patient will be placed on Keflex for possible surrounding cellulitis of small laceration on the side. Patient is stable for discharge at this time. Return parameters were discussed with the patient she verbalized understanding. Case discussed with Dr. Doe. Disposition Clinical Impression: Contusion of right great toe without damage to nail, Cellulitis of right toe Disposition: HOME SELF-CARE Condition: Stable Instructions (If sedation given, give patient instructions): Contusion in Adults (ED) Additional Instructions: Please return to the Emergency Department if symptoms worsen or any other concerns. Follow-up with PCP as symptoms persist. Use warm water soaks once a day. Prescriptions: Cephalexin [Keflex] 500 mg PO Q6HR 5 Days #20 cap Is patient prescribed a controlled substance at d/c from ED?: No Referrals: Fer Bee MD [Primary Care Provider] - 1-2 days
== END 2019-07-10 22:27 | disposition home or self-care (01) ==
LOC: EC 21:18
DX: S90.111A Contusion of right great toe without damage to nail, initial encounter (principal); L03.031 Cellulitis of right toe; F17.200 Nicotine dependence, unspecified, uncomplicated; Z91.018 Allergy to other foods; W20.8XXA Other cause of strike by thrown, projected or falling object, initial encounter
CPT/HCPCS: 99283

== ENCOUNTER 2021-10-23 22:45 | Emergency (ER) | payer OTHER ==
[2021-10-23 22:52] VITALS: BP 138/81; PULSE 110; RESP 18; TEMP 97.9
--- NOTE | 2021-10-23 23:59 | ED ---
URI HPI - General Chief Complaint: Upper Respiratory Infection Stated Complaint: Cough Time Seen by Provider: 10/23/21 23:09 Source: patient, RN notes reviewed Mode of arrival: ambulatory - History of Present Illness Initial Comments: Patient reports a mild cough and runny nose for the past 3 days. Patient is status post a COVID-[address] of employment. No fever. No respiratory distress. His fluids to her son who also has a mild cough as well. No headache, no fever or chills, no changes in vision or hearing, no sore throat or difficulty with speech, no neck pain, no chest pain or shortness of breath, no abdominal pain, no nausea or vomiting, no changes in urination or bowel movements, no numbness or tingling, no extremity pain, no skin rashes or lesions. - Related Data Previous Rx's Medication Instructions Recorded HYDROcodone/APAP 5-325MG [[place] 1 tab PO Q4HR PRN #20 tab 02/04/19 5-325] Ibuprofen [Motrin] 600 mg PO Q6HR PRN #30 tab 02/04/19 Cephalexin [Keflex] 500 mg PO Q6HR 5 Days #20 cap 07/10/19 Allergies Allergy/AdvReac Type Severity Reaction Status Date / Time lactose AdvReac Diarrhea Verified 10/23/21 22:52 Review of Systems ROS Statement: Those systems with pertinent positive or pertinent negative responses have been documented in the HPI. ROS Other: All systems not noted in ROS Statement are negative. Past Medical History Past Medical History: No Reported History History of Any Multi-Drug Resistant Organisms: None Reported Past Surgical History: Cholecystectomy Past Anesthesia/Blood Transfusion Reactions: No Reported Reaction Past Psychological History: ADD/ADHD, Depression Smoking Status: Current every day smoker Past Alcohol Use History: None Reported Past Drug Use History: None Reported - Past Family History Father Family Medical History: Hypertension General Exam - General Exam Comments Initial Comments: Patient does not appear to be in any distress. Does not appear to be ill or toxic General appearance: alert, in no apparent distress Head exam: Present: atraumatic, normocephalic, normal inspection Eye exam: Present: normal appearance, PERRL, EOMI. Absent: scleral icterus, conjunctival injection, periorbital swelling ENT exam: Present: normal exam, mucous membranes moist Neck exam: Present: normal inspection. Absent: tenderness, meningismus, lymphad enopathy Respiratory exam: Present: normal lung sounds bilaterally. Absent: respiratory distress, wheezes, rales, rhonchi, stridor Cardiovascular Exam: Present: regular rate, normal rhythm, normal heart sounds. Absent: systolic murmur, diastolic murmur, rubs, gallop, clicks GI/Abdominal exam: Present: soft, normal bowel sounds. Absent: distended, tenderness, guarding, rebound, rigid Extremities exam: Present: normal inspection, full ROM, normal capillary refill. Absent: tenderness, pedal edema, joint swelling, calf tenderness Back exam: Present: normal inspection Neurological exam: Present: alert, oriented X3, CN II-XII intact Psychiatric exam: Present: normal affect, normal mood Skin exam: Present: warm, dry, intact, normal color. Absent: rash Course Vital Signs 10/23/21 22:50 Temperature 97.9 F Pulse Rate 110 H Respiratory 18 Rate Blood Pressure 138/81 O2 Sat by Pulse 98 Oximetry Medical Decision Making - Medical Decision Making Its posterior COVID-19. COVID-19 testing ordered here. Patient had no respiratory distress. Discussed all findings. All questions answered. Patient was told to return to the ER for any signs or symptoms worsen. Told to return immediately if any other problems arise. All questions answered. Alejandro atment plan discussed. Patient in agreement Patient tested negative for COVID-19. However she has symptomology consistent with the disease and her child has tested positive. Patient's also been exposed to numerous positive cases. I suspect this is a false negative test. Will treat conservatively as if the patient has COVID-19. He measures were discussed in detail. Patient voiced understanding. Patient was told to return to the ER for any signs or symptoms worsen. Told to return immediately if any other problems arise. All questions answered. Treatment plan discussed. Patient in agreement - Lab Data Lab Results 10/23/21 Range/Units 23:16 Coronavirus (PCR) Not Detected (Not Detectd) Disposition Clinical Impression: COVID-19 Disposition: HOME SELF-CARE Instructions (If sedation given, give patient instructions): Coronavirus Disease 2019 (COVID-19) Additional Instructions: SELF QUARANTINE DISCHARGE: As you are at risk for symptoms due to coronavirus, please stay home and stay away from others as much as possible. Please maintain social distance of 6 feet if possible. You should not return to work until at least 3 days (72 hours) have passed since recovery of symptoms. This defined as resolution of fever without the use of fever reducing medicines and improvement in respiratory symptoms (e.g,, cough, shortness of breath) Isolation can end at least 5 days after symptom onset and after fever ends for 24 hours (without the use of fever-reducing medication) and symptoms are improving, if these people can continue to properly wear a well-fitted mask around others for 5 more days after the 5-day isolation period. If you're still having symptoms at the end of 5 day period, isolate for an additional 5 days. More information about what to do if you are sick can be found on the CDC website at https://www.cdc.gov/coronavirus/2019-ncov/go-awh-aep-sick/fjdcs-dxsi-bpje.html Expect the symptoms to last for 7-14 days from onset. Use acetaminophen (Tylenol) as needed for discomfort. You can take a maximum of 1 gram every 6 hours for discomfort, with your total dose in 24 hours not exceeding 4 grams. Be sure to maintain hydration. Drink continuous water and/or items high in vitamin C, such as orange juice and/or lemonade. Unless you have high blood pressure, you may consider Sudafed (which is [id number]) for nasal congestion. I would suggest that a short acting Sudafed rather than the 24 hour Sudafed. For a cough you may take Mucinex or Robitussin. Also consider the use of Vicks Vapor Rub or your chest when you sleep. Use a humidifier that is cleaned frequently, in the bedroom at night. For Nausea /Vomiting/Diarrhea associated with your Illness: o Small frequent sips of room temperature liquids. o Diet: [employer] - If you are still experiencing discomfort and/or nausea please slowly advancing your diet using the BRAT Diet = bananas, rice, apples/apple sauce, toast. o With diarrhea avoid any dairy for 48 hours after symptoms resolved. o Continue with activity as tolerated. If your symptoms do get worse and you believe that the upper respiratory infection has developed into something else, such as pneumonia or severe dehydration, please return to the emergency department or follow-up with your primary care. But expect to be symptomatic for the days as indicated above Is patient prescribed a controlled substance at d/c from ED?: No Referrals: Fer Bee MD [Primary Care Provider] - 10/31/21 Time of Disposition: 00:23
== END 2021-10-24 00:37 | disposition home or self-care (01) ==
LOC: EC 22:45
DX: U07.1 COVID-19 (principal); F17.200 Nicotine dependence, unspecified, uncomplicated; Z91.011 Allergy to milk products
CPT/HCPCS: 87635; 99283